=== PATIENT | female | born 1975 | race Caucasian/White ===

== ENCOUNTER 2017-10-28 09:07 | Day surgery (SDC) | payer OTHER ==
[2017-10-28] MEDS ORDERED: LACTATED RINGERS 1,000 ML IV ONE (09:35)
[2017-10-28 09:54] LABS: HCG UR QUAL NEGATIVE
[2017-10-28] MEDS ORDERED: fentaNYL 100 MCG/2 ML VIAL IVP ONE (10:20)
[2017-10-28] MEDS ORDERED: LIDOCAINE-MPF 2% 5 ML VIAL IM ONE (10:20)
[2017-10-28] MEDS ORDERED: PROPOFOL 200 MG/20 ML VIAL IVP ONE (10:20)
[2017-10-28] MEDS ORDERED: MIDAZOLAM 2 MG/2 ML VIAL IVP ONE (10:20)
[2017-10-28] MEDS ORDERED: LIDOCAINE 1%-EPI 1:100000 30 ML MDV ONE (10:34)
[2017-10-28] MEDS ORDERED: BUPIVACAINE 0.25% PF 30 ML VIAL ONE (10:35)
[2017-10-28] MEDS ORDERED: LIDOCAINE 1%-EPI 1:100000 30 ML MDV SUBQ ONE ×2 (10:44)
[2017-10-28] MEDS ORDERED: BUPIVACAINE 0.25% PF 30 ML VIAL SUBQ ONE ×2 (10:44)
[2017-10-28 11:29] VITALS: BP 114/61
--- NOTE | 2017-10-28 12:56 | OPERATIVE REPORT ---
DATE OF SERVICE: 10/28/2017 Physician: Tyshawn Rodriguez MD PREOPERATIVE DIAGNOSIS: Right hand carpal tunnel syndrome. POSTOPERATIVE DIAGNOSIS: Right hand carpal tunnel syndrome. PROCEDURE PERFORMED: Right carpal tunnel release. OPERATING SURGEON: Tyshawn Rodriguez MD ANESTHESIA: Local, MAC; Mason Nickerson. INDICATIONS FOR SURGERY: Patient is a 42-year-old female with progressive severe carpal tunnel syndrome of her right hand. She has failed nonoperative treatment and desires carpal tunnel release. DESCRIPTION OF OPERATIVE PROCEDURE The patient was taken to the operating room and was given light IV sedation, after which her hand was sterilely prepped and draped in standard fashion. A surgical timeout was held. The patient's hand was marked for planning of incision and infiltration performed with a carpal tunnel block consisting of 4 mL of 1% lidocaine with epinephrine and 4 mL of 0.25% Marcaine plain. This was allowed time to take effect, after which, a longitudinal incision was made in line with the third web approximately 2 cm in length, taken through skin and subcutaneous tissue down to the transverse carpal ligament fibers. These were divided in line with the incision, exposing the underlying carpal tunnel. The release was carefully extended at its distal extent ending at the superficial arch and at the proximal extent ending at the distal wrist flexion crease. This gave an adequate and full decompression of the carpal tunnel, the area was flushed and irrigated. There were no other abnormalities in the tunnel. The closure of the skin was undertaken with 4-0 nylon interrupted. Sterile dressings were applied. The patient was taken to recovery room in stable condition. ESTIMATED BLOOD LOSS: Minimal. COMPLICATIONS: None. Sponge and needle counts correct. TD: 10/28/2017 11:11 FADY
== END 2017-10-28 09:08 | disposition home or self-care (01) ==
LOC: SDS 09:07
PROVIDERS: ATTEND Orthopaedic Surgery
PROC: 01N50ZZ Release Median Nerve, Open Approach (ICD-10-PCS; principal; 2017-10-28 10:15)
DX: G56.01 Carpal tunnel syndrome, right upper limb (principal); F17.290 Nicotine dependence, other tobacco product, uncomplicated
CPT/HCPCS: 64721; 81025; J7120

== ENCOUNTER 2018-11-25 13:03 | Outpatient (CLI) | payer OTHER ==
--- NOTE | 2018-11-27 16:58 | XRAY Report ---
Reason: DYSPHAGIA, UNSPECIFIED Procedure Date: 11/25/2018 Accession Number: [id number] / [id number] Procedure: FL - Modified Barium Swallow W/SP CPT Code: FULL RESULT: EXAM: MODIFIED BARIUM SWALLOW EXAM DATE: 11/25/2018 01:46 PM. CLINICAL HISTORY: Dysphagia, unspecified. COMPARISON: None. TECHNIQUE: Under the direction of speech pathology, patient swallowed various consistencies of barium under lateral fluoroscopic observation of the neck. Fluoroscopy Time: 39 seconds. Number of Images: 31. FINDINGS: Swallowing Mechanism: Normal oral phase and swallowing reflex. Airway Protection: Normal epiglottic motion. No episodes of tracheal penetration or aspiration with all consistencies of barium. Pharynx: Normal. No significant vallecular or piriform sinus contrast pooling. Other: None. IMPRESSION: Normal modified barium swallow. No aspiration identified. RADIA
== END 2018-11-25 13:04 | disposition home or self-care (01) ==
LOC: DI 13:03
PROVIDERS: ATTEND Otolaryngology
DX: R13.10 Dysphagia, unspecified (principal)
CPT/HCPCS: 74230

== ENCOUNTER 2020-01-21 13:58 | Emergency (ER) | payer OTHER ==
[2020-01-21 14:06] VITALS: BP 141/70
--- NOTE | 2020-01-21 15:22 | ED Physician Documentation ---
PD HPI UPPER EXT INJURY - Stated complaint Stated Complaint: RT RING FINGER PX - Chief complaint Chief Complaint: Ext Problem - History obtained from History obtained from: Patient - Additonal information Additional information: Pt c/o pain and swelling of her L ring finger after getting a thorn stuck in it 3 days ago. Pt states she tried to dig it out 2 days ago, and noticed some swelling and redness developing, which has continued to progress since. No streaking or spread to the hand or forearm. Pt states she was able to squeeze the thorn out today, and also got what looked like some pus. No fevers, chills, or body aches. Review of Systems Ten Systems: 10 systems reviewed and negative Constitutional: reports: Reviewed and negative Eyes: reports: Reviewed and negative Ears: reports: Reviewed and negative Nose: reports: Reviewed and negative Throat: reports: Reviewed and negative Cardiac: reports: Reviewed and negative Respiratory: reports: Reviewed and negative GI: reports: Reviewed and negative : reports: Reviewed and negative Skin: reports: Other (FB/puncture, erythema) Musculoskeletal: reports: Extremity pain, Extremity swelling Neurologic: reports: Reviewed and negative Psychiatric: reports: Reviewed and negative Endocrine: reports: Reviewed and negative Immunocompromised: reports: Reviewed and negative PD PAST MEDICAL HISTORY - Past Medical History Cardiovascular: None Respiratory: None Endocrine/Autoimmune: None GI: None : None HEENT: None Psych: None Musculoskeletal: None Derm: None - Present Medications Home Medications: Ambulatory Orders Medication Instructions Recorded Confirmed Biotin 0 mg PO DAILY 10/23/17 10/28/17 Cholecalciferol (Vitamin D3) 0 unit PO DAILY 10/23/17 10/28/17 [Vitamin D3] No122/Iron/Folic Acid 1 each PO DAILY 10/23/17 10/28/17 [ Multi Tablet] Cephalexin [Keflex] 500 mg PO Q6H #28 capsule 01/21/20 - Allergies Allergies/Adverse Reactions: Allergies Allergy/AdvReac Type Severity Reaction Status Date / Time Sulfa (Sulfonamide Allergy Rash Verified 01/21/20 14:04 Antibiotics) PD ED PE NORMAL - Vitals Vital signs reviewed: Yes - General General: Alert and oriented X 3, No acute distress - HEENT HEENT: Atraumatic, PERRL, EOMI, Moist mucous membranes - Neck Neck: Supple, no meningeal sign - Cardiac Cardiac: Strong equal pulses - Respiratory Respiratory: No respiratory distress - Derm Derm: Warm and dry, Other (erythema, as above, L ring finger. No fluctuance or induration. Generalized edema.) - Extremities Extremities: No deformity, Other (moderate edema and erythema L ring finger, with wound at PIP flexor surface. No drainage expressible. No remaining FB visible. No tendon sheath tenderness.) - Neuro Neuro: Alert and oriented X 3 - Psych Psych: Normal mood, Normal affect Results - Vitals Vitals: Oxygen O2 Source Room air PD MEDICAL DECISION MAKING - ED course Complexity details: considered differential, d/w patient ED course: D/w pt that there is no evidence of a distinct abscess that can be I&D'd at this time. I also do not feel that there should be any further attempt to find or remove any remnant of FB that may be left, either by myself or the pt. I have given the pt a prescription for abx. We have discussed hot packing to encourage drainage, should any further develop. There is no evidence of a flexor tenosynovitis at this time. We have discussed the usual indications for return. Departure - Departure Disposition: 01 Home, Self Care Clinical Impression: Cellulitis of finger of left hand Condition: Stable Instructions: ED Infec Skin Cellulitis Prescriptions: Cephalexin [Keflex] 500 mg PO Q6H #28 capsule Discharge Date/Time: 01/21/20 15:40
== END 2020-01-21 15:40 | disposition home or self-care (01) ==
LOC: ED 13:58
DX: L03.012 Cellulitis of left finger (principal)
CPT/HCPCS: 99282; 99284

== ENCOUNTER 2020-10-23 14:41 | Outpatient (CLI) | payer OTHER ==
--- NOTE | 2020-10-24 14:26 | Mammography Report ---
BILATERAL DIGITAL SCREENING MAMMOGRAM 3D/2D: 10/23/2020 CLINICAL: Baseline exam. Routine screening. No prior exams were available for comparison. There are scattered fibroglandular elements in both br easts. No significant masses, calcifications, or other findings are seen in either breast. IMPRESSION: NEGATIVE There is no mammographic evidence of malignancy. A 1 year screening mammogram is recommended. This exam was interpreted at Station ID: [id number]. NOTE: For mammograms, a report in lay terms will be sent to the patient. Approximately 15% of breast malignancies will not be visualized mammographically. In the management of a palpable breast mass, a negative mammogram must not discourage biopsy of a clinically suspicious lesion. Electronically Signed By: Owen serrato/ama:10/23/2020 15:19:52 ACR BI-RADS Category 1: Negative 3341F PARENCHYMAL PATTERN: (A) - The breast(s) demonstrate(s) scattered fibroglandular densities. BI-RADS CATEGORY: (1) - 1 RECOMMENDATION: (ANNUAL) - Recommend routine annual screening mammography. 20211024 1 year screening LATERALITY: (B)
== END 2020-10-23 14:42 | disposition home or self-care (01) ==
LOC: DI 14:41
DX: Z12.31 Encounter for screening mammogram for malignant neoplasm of breast (principal)

== ENCOUNTER 2022-10-13 07:35 | Emergency (ER) | payer OTHER ==
[2022-10-13 07:47] VITALS: BP 122/52
[2022-10-13 08:15] LABS: BILIRUBIN,URINE NEGATIVE (NEGATIVE); GLUCOSE, URINE (UA) NEGATIVE (NEGATIVE); KETONES,URINE (UA) NEGATIVE (NEGATIVE); LEUKOCYTE ESTERASE, URINE MODERATE (NEGATIVE); NITRITE,URINE NEGATIVE (NEGATIVE); OCCULT BLOOD,URINE MODERATE (NEGATIVE); PH,URINE 5.5 PH (5.0-7.5); PROTEIN,URINE NEGATIVE (NEGATIVE); UROBILINOGEN,URINE 0.2 (NORMAL) E.U./dL (NORMAL)
[2022-10-13 08:25] LABS: BACTERIA,URINE Few /HPF (None Seen); CLARITY,URINE SL. CLOUDY (CLEAR); HCG UR QUAL NEGATIVE; SQUAMOUS EPITHELIAL CELL,UR MANY Squamous (<= Few); WBC,URINE >25 /HPF (0-5)
--- NOTE | 2022-10-13 08:34 | ED Physician Documentation ---
PD HPI FEMALE - Stated complaint Stated Complaint: lower back pain - Chief complaint Chief Complaint: Abd Pain - History obtained from History obtained from: Patient - History of Present Illness Timing - onset: How many days ago (2) Timing - duration: Days (2) Timing - details: Gradual onset, Still present Associated symptoms: Back pain, Dysuria, Urinary frequency. No: Fever, Genital sore/lesion Contributing factors: No: Similar symptoms before: Diagnosis (UTI) Recently seen: Not recently seen - Additional information Additional information: 47-year-old female with a history of prior urinary tract infections has developed urinary urgency frequency and dysuria. She is also having some dribbling of urine out and feels like she is not emptying her bladder completely. Review of Systems Constitutional: denies: Fever Ears: denies: Ear pain Nose: denies: Congestion Throat: denies: Sore throat Respiratory: denies: Cough GI: denies: Vomiting : reports: Dysuria, Frequency Skin: denies: Rash Musculoskeletal: reports: Back pain. denies: Neck pain PD PAST MEDICAL HISTORY - Past Medical History Cardiovascular: None Respiratory: None Endocrine/Autoimmune: None GI: None : None HEENT: None Psych: None Musculoskeletal: None Derm: None - Present Medications Home Medications: Ambulatory Orders Medication Instructions Recorded Confirmed Biotin 0 mg PO DAILY 10/23/17 10/28/17 Cholecalciferol (Vitamin D3) 0 unit PO DAILY 10/23/17 10/28/17 [Vitamin D3] No122/Iron/Folic Acid 1 each PO DAILY 10/23/17 10/28/17 [ Multi Tablet] cephALEXin [Keflex] 500 mg PO Q6H #28 capsule 01/21/20 Phenazopyridine HCl [Pyridium] 200 mg PO TID PRN #6 tablet 10/13/22 cephALEXin [Keflex] 500 mg PO Q6H #20 cap 10/13/22 - Allergies Allergies/Adverse Reactions: Allergies Allergy/AdvReac Type Severity Reaction Status Date / Time Sulfa (Sulfonamide Allergy Rash Verified 10/13/22 07:43 Antibiotics) PD ED PE NORMAL - Vitals Vital signs reviewed: Yes (Normal) - General General: Alert and oriented X 3, No acute distress, Well developed/nourished - HEENT HEENT: Atraumatic, PERRL, EOMI - Neck Neck: Supple, no meningeal sign, No bony TTP - Cardiac Cardiac: RRR, No murmur - Respiratory Respiratory: No respiratory distress, Clear bilaterally - Abdomen Abdomen: Normal bowel sounds, Soft, Non distended, No organomegaly, Other (Mild suprapubic tenderness) - Back Back: No CVA TTP, No spinal TTP, Other (Low back pain paraspinous muscle tenderness is mild.) - Derm Derm: Normal color, Warm and dry, No rash - Extremities Extremities: No deformity, No edema - Neuro Neuro: Alert and oriented X 3, 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 CLOUDY Urine pH 5.5 Ur Specific Martin 1.010 Urine Protein NEGATIVE Urine Glucose (UA) NEGATIVE Urine Ketones NEGATIVE Urine Occult Blood MODERATE H Urine Nitrite NEGATIVE Urine Bilirubin NEGATIVE Urine Urobilinogen 0.2 (NORMAL) Ur Leukocyte Esterase MODERATE H Urine RBC 6-10 H Urine WBC >25 H Ur Squamous Epith Cells MANY Squamous H Urine Bacteria Few Ur Microscopic Review INDICATED Urine Culture Comments NOT INDICATED Urine HCG, Qual NEGATIVE PD Medical Decision Making - ED course Reviewed Lab Results: We reviewed a urinalysis which showed a yellow cloudy urine with moderate occult blood moderate leukocyte Estrace negative for nitrite greater than 25 white blood cells per high-powered field. Urine was negative. My interpretation of this urinalysis was a potentially contaminated specimen that demonstrated infection. The urine was not cultured. ED course: 47-year-old female with signs and symptoms of urinary tract infection is administered Pyridium we will place her on a course of Keflex. Departure - Departure Disposition: 01 Home, Self Care Clinical Impression: Urinary tract infection Qualifiers: Urinary tract infection type: acute cystitis Hematuria presence: with hematuria Qualified Code(s): N30.01 - Acute cystitis with hematuria Condition: Stable Instructions: ED UTI Cystitis Female Follow-Up: GILBERT TURCIOS PA-C [Primary Care Provider] - Prescriptions: cephALEXin [Keflex] 500 mg PO Q6H #20 cap Phenazopyridine HCl [Pyridium] 200 mg PO TID PRN #6 tablet PRN Reason: dysuria Comments: Brooke, today it looks like you have a urinary tract infection and we have E scribed Keflex [facility] to [facility] [place]. You will need to take this medication for about 5 days and you can expect to have improvement in your symptoms relatively rapidly, within the next day. Discharge Date/Time: 10/13/22 08:50
[2022-10-13] MEDS ORDERED: PHENAZOPYRIDINE 100 MG TABLET PO STA (08:38)
== END 2022-10-13 08:50 | disposition home or self-care (01) ==
LOC: ED 07:35
DX: N30.01 Acute cystitis with hematuria (principal)
CPT/HCPCS: 81001; 81025; 99283; A9270; 81003; 87086

== ENCOUNTER 2023-03-11 08:00 | Outpatient (CLI) | payer OTHER | END 2023-03-11 08:15 | disposition home or self-care (01) | LOC: LAB.N 08:00 | PROVIDERS: ATTEND Family Medicine | DX: R30.0 Dysuria (principal) | CPT/HCPCS: 87086; 87181 ==

== ENCOUNTER 2023-05-01 08:00 | Outpatient (CLI) | payer OTHER | END 2023-05-01 23:59 | disposition home or self-care (01) | LOC: LAB.N 08:00 | PROVIDERS: ATTEND Family Medicine | DX: R30.0 Dysuria (principal) | CPT/HCPCS: 87086 ==

== ENCOUNTER 2023-05-27 10:26 | Emergency (ER) | payer OTHER ==
[2023-05-27 10:51] VITALS: O2SAT 100
[2023-05-27 11:06] LABS: BASOPHILS % (AUTO) 0.7 %; EOSINOPHILS # (AUTO) 0.3 10^3/uL (0.0-0.7); EOSINOPHILS % (AUTO) 4.2 %; HCT - HEMATOCRIT 41.3 % (37.0-47.0); HGB - HEMOGLOBIN 13.4 g/dL (12.0-16.0); LYMPHOCYTES # (AUTO) 1.7 10^3/uL (1.5-3.5); LYMPHOCYTES % (AUTO) 27.8 %; MEAN CORPUSCULAR HEMOGLOBIN 30.1 pg (27.0-31.0); MEAN CORPUSCULAR HGB CONC 32.4 g/dL (32.0-36.0); MEAN CORPUSCULAR VOLUME 92.8 fL (81.0-99.0); MEAN PLATELET VOLUME 9.1 fL (7.9-10.8); MONOCYTES # (AUTO) 0.4 10^3/uL (0.0-1.0); NEUTROPHILS # (AUTO) 3.6 10^3/uL (1.5-6.6); NEUTROPHILS % (AUTO) 60.1 %; PLT - PLATELET COUNT 319 10^3/uL (130-450); RED BLOOD COUNT 4.45 10^6/uL (4.20-5.40)
[2023-05-27 11:16] LABS: BILIRUBIN,URINE NEGATIVE (NEGATIVE); GLUCOSE, URINE (UA) NEGATIVE (NEGATIVE); KETONES,URINE (UA) NEGATIVE (NEGATIVE); LEUKOCYTE ESTERASE, URINE NEGATIVE (NEGATIVE); NITRITE,URINE NEGATIVE (NEGATIVE); OCCULT BLOOD,URINE SMALL (NEGATIVE); PROTEIN,URINE NEGATIVE (NEGATIVE); UROBILINOGEN,URINE 0.2 (NORMAL) E.U./dL (NORMAL)
[2023-05-27 11:19] LABS: CLARITY,URINE CLEAR (CLEAR); HCG UR QUAL NEGATIVE
[2023-05-27 11:20] LABS: ALBUMIN 4.4 g/dL (3.2-5.5); ALBUMIN/GLOBULIN RATIO 1.6 (1.0-2.2); BILIRUBIN,TOTAL 1.2 mg/dL (0.2-1.0); CREATININE 0.7 mg/dL (0.6-1.3); TOTAL PROTEIN 7.1 g/dL (6.4-8.9)
--- NOTE | 2023-05-27 11:42 | ED Physician Documentation ---
PD HPI ABD PAIN - Stated complaint Stated Complaint: ABD PX - Chief complaint Chief Complaint: Abd Pain - History obtained from History obtained from: Patient - History of Present Illness Timing - onset: How many days ago (3) Timing - duration: Days (3) Timing - details: Gradual onset Quality: Pain Location: Other (R mid abdomen) Radiation: No: Chest, , Lower back, Left flank, Left shoulder, Right flank, Right shoulder, Upper back Worsened by: No: Eating, Moving, Breathing, Position, Palpation Associated symptoms: Constipation. No: Fever, Nausea, Vomiting, Hematemesis, Diarrhea, Melena, Hematochezia, Dysuria, Hematuria, Chest pain, Dizzy Similar symptoms before: Diagnosis (IBS-C) Review of Systems Constitutional: denies: Fever Cardiac: denies: Chest pain / pressure, Palpitations Respiratory: denies: Cough GI: denies: Vomiting, Diarrhea : denies: Dysuria, Frequency, Hesitancy Skin: denies: Rash Musculoskeletal: denies: Neck pain, Back pain PD PAST MEDICAL HISTORY - Past Medical History Past Medical History: Yes Cardiovascular: Hypertension Endocrine/Autoimmune: HyPOthyroidism GI: GERD, Other MEDICAL TECHNOLOGIST HEMATOLOGY: Other : None HEENT: None Psych: None Musculoskeletal: None Derm: None Other Past Medical History: IBS-C. cervical cancer - Past Surgical History Past Surgical History: Yes Ortho: Carpal Tunnel surgery, Other HEENT: Other - Present Medications Home Medications: Ambulatory Orders Medication Instructions Recorded Confirmed No122/Iron/Folic Acid 1 each PO DAILY 10/23/17 05/27/23 [ Multi Tablet] Esomeprazole Magnesium [Nexium] 40 mg PO DAILY 05/27/23 05/27/23 HYDROcod/ACETAM 5/325 [Pearland 5/325] 1 - 2 ea PO Q6H PRN #10 tablet 05/27/23 Levothyroxine [Synthroid] 75 mcg PO QDAC 05/27/23 05/27/23 Losartan [Cozaar] 50 mg PO DAILY 05/27/23 05/27/23 - Allergies Allergies/Adverse Reactions: Allergies Allergy/AdvReac Type Severity Reaction Status Date / Time Sulfa (Sulfonamide Allergy Rash Verified 05/27/23 10:38 Antibiotics) - Social History Does the pt smoke?: No Smoking Status: Never smoker Does the pt drink ETOH?: Yes Does the pt have substance abuse?: Yes Substance Use and Type: Marijuana - Immunizations Immunizations are current?: Yes - POLST Patient has POLST: No PD ED PE NORMAL - Vitals Vital signs reviewed: Yes - General General: Alert and oriented X 3, No acute distress - HEENT HEENT: Moist mucous membranes - Neck Neck: Supple, no meningeal sign - Cardiac Cardiac: RRR - Respiratory Respiratory: No respiratory distress, Clear bilaterally - Abdomen Abdomen: Soft, Non distended, Other (mild ttp R mid abodmen. No peritoneal signs. Negative Alvarez sign. Negative Rovsing and obturator signs. No tenderness to McBurney's point) - Back Back: No CVA TTP, No spinal TTP - Derm Derm: Warm and dry - Extremities Extremities: No edema - Neuro Neuro: Alert and oriented X 3 - Psych Psych: Normal mood, Normal affect Results - Vitals Vitals: Vital Signs - 24 hr 05/27/23 05/27/23 10:39 12:31 Temperature 36 C L 36.2 C L Heart Rate 57 L 60 Respiratory 16 18 Rate Blood Pressure 125/65 113/77 O2 Saturation 100 100 Oxygen O2 Source Room air - Labs Labs: Laboratory Tests 05/27/23 05/27/23 05/27/23 10:54 10:57 10:57 WBC 6.0 RBC 4.45 Hgb 13.4 Hct 41.3 MCV 92.8 MCH 30.1 MCHC 32.4 RDW 13.0 Plt Count 319 MPV 9.1 Neut # (Auto) 3.6 Lymph # (Auto) 1.7 Wilkes # (Auto) 0.4 Eos # (Auto) 0.3 Baso # (Auto) 0.0 Absolute Nucleated RBC 0.00 Nucleated RBC % 0.0 Sodium 137 Potassium 4.0 Chloride 106 Carbon Dioxide 25 Anion Gap 6.0 BUN 6 Creatinine 0.7 Estimated GFR (MDRD) 90 Glucose 103 Calcium 9.0 Total Bilirubin 1.2 H AST 18 ALT 21 Alkaline Phosphatase 52 Total Protein 7.1 Albumin 4.4 Globulin 2.7 Albumin/Globulin Ratio 1.6 Lipase 34 Urine Color YELLOW Urine Clarity CLEAR Urine pH 6.0 Ur Specific [place] 1.015 Urine Protein NEGATIVE Urine Glucose (UA) NEGATIVE Urine Ketones NEGATIVE Urine Occult Blood SMALL H Urine Nitrite NEGATIVE Urine Bilirubin NEGATIVE Urine Urobilinogen 0.2 (NORMAL) Ur Leukocyte Esterase NEGATIVE Urine RBC 0-5 Urine WBC 0-3 Ur Squamous Epith Cells FEW Squamous Urine Bacteria Rare Ur Microscopic Review INDICATED Urine Culture Comments NOT INDICATED Urine HCG, Qual NEGATIVE - Rads (name of study) ct abd/pel Relevant Findings:: Final report received, See rad report PD Medical Decision Making - ED course Complexity details: reviewed results, re-evaluated patient, considered differential (No evidence of appendicitis, cholecystitis, ureteral colic, colitis, bowel obstruction.), d/w patient ED course: Patient with right-sided abdominal pain. No acute findings on laboratory testing or CT abdomen pelvis. She is well-appearing, nontoxic. Afebrile. Tolerating p.o. without difficulty. Abdomen is soft, nontender nondistended on serial exam. Unclear etiology of her symptoms. We will have her follow-up with her PCP for further care. Patient counseled regarding signs and symptoms for which I believe and urgent re-evaluation would be necessary. Patient with good understanding of and agreement to plan and is comfortable going home at this time This document was made in part using voice recognition software. While efforts are made to proofread this document, sound alike and grammatical errors may occur. Departure - Departure Disposition: 01 Home, Self Care Clinical Impression: Abdominal pain Qualifiers: Abdominal location: unspecified location Qualified Code(s): R10.9 - Unspecified abdominal pain Condition: Good Instructions: ED Abdominal Pain Female Non-Specific Abdominal Pain Follow-Up: GILBERT TURCIOS PA-C [Primary Care Provider] - Prescriptions: HYDROcod/ACETAM 5/325 [Pearland 5/325] 1 - 2 ea PO Q6H PRN #10 tablet PRN Reason: Pain Comments: Your laboratory testing, CT scan and urinalysis do not show any acute abnormalities today. The cause of your pain is unclear. Please follow-up with your doctor for further care, you should have a colonoscopy if you have not had one in the past. Your pain could be related to your IBS as well. Will prescribe you a small amount of pain medication and have you follow-up with your doctor for further care. Return if you worsen. Your prescription was sent to [facility] in [place]. I am prescribing a short course of narcotic pain medication for you. These are potentially dangerous and addictive medications that should be used carefully. These medications may constipate you. Take an jwcr-zaw-zpfkwuf stool softener (docusate) twice daily with plenty of water while taking these medications. If you go 24 hours without a bowel movement, take [id number] miralax, per package instructions. Do not drink or drive while taking these medications. If you received narcotic or sedating medications while in the emergency department, do not drive for 24 hours. Store this medication in a safe, secure place and out of reach of children. It is a violation of federal law to give or sell this medication to another person or to use in a manner other than prescribed. The ED will not refill narcotic prescriptions, including prescriptions lost or stolen. To dispose of unwanted medications: 1. [facility] at [address] in [place] has a medication drop box. They accept prescription medications (in pill form) Friday through Friday 9:00 a.m. to 5:00 p.m. 2. The [facility] [employer] accepts prescription medications (in pill form only) for disposal year round. Call for more information. 3. Contact the [facility] for the next [facility] sponsored prescription drug collection event. , [phone], or [phone]; Forms: PCP List Discharge Date/Time: 05/27/23 12:42
[2023-05-27 11:45] LABS: RBC,URINE 0-5 /HPF (0-5); SQUAMOUS EPITHELIAL CELL,UR FEW Squamous (<= Few); WBC,URINE 0-3 /HPF (0-5)
[2023-05-27 11:46] LABS: BACTERIA,URINE Rare /HPF (None Seen)
[2023-05-27] MEDS ORDERED: iohexoL-300 100 ML VIAL ONE (11:54)
--- NOTE | 2023-05-27 12:18 | CT Report ---
PROCEDURE: Abdomen/Pelvis W INDICATIONS: R sided abd pain CONTRAST: Omni 300 100ml TECHNIQUE: After the administration of intravenous contrast, a CT scan of the abdomen and pelvis was performed. Images were recorded and evaluated at appropriate window settings. Reformats: coronal and sagittal. F or radiation dose reduction, the following was used: automated exposure control, adjustment of mA and /or kV according to patient size. COMPARISON: None. FINDINGS: Image quality: Excellent. Lung bases and heart: Unremarkable. Liver: No solid mass. Gallbladder and biliary tree: Spleen: No splenomegaly. Pancreas: No pancreatic ductal dilation. Adrenals: No adrenal nodule. Kidneys and ureters: No hydronephrosis. No renal cystic lesion which requires follow up. No solid mas s. Bowel and peritoneum: No bowel distension. No pathologic free fluid. Normal appendix. Lymph nodes: No central or retroperitoneal adenopathy. Vessels: No infrarenal aortic aneurysm. PELVIS Reproductive organs: Unremarkable. Bladder: No abnormal wall thickening, accounting for underdistention. Pelvic lymph nodes: No pelvic adenopathy by size criteria. Bones: No aggressive osseous abnormality. Other: No significant ventral or inguinal hernia. IMPRESSION: 1. No acute process. 2. Normal appendix. Reviewed by: Collins Hollingsworth MD on 05/27/2023 12:16 PM PST Approved by: Collins Hollingsworth MD on 05/27/2023 12:16 PM PST Station ID: [id number]
[2023-05-27 12:35] VITALS: BP 113/77
[2023-05-27] MEDS ORDERED: iohexoL-300 100 ML VIAL IVP ONE (15:12)
== END 2023-05-27 12:42 | disposition home or self-care (01) ==
LOC: ED 10:26
DX: R10.9 Unspecified abdominal pain (principal); I10 Essential (primary) hypertension
CPT/HCPCS: 36415; 74177; 80053; 81001; 81025; 83690; 85025; 99283; 99284; Q9967; 81003; 87086